=== PATIENT | female | born 1985 | race Caucasian/White ===

== ENCOUNTER 2017-02-10 23:10 | Emergency (ER) | payer BC, OTHER ==
[~2017-02-10] VITALS: Ht 165.1 cm; Wt 90.7 kg
[~2017-02-10 23:10] MED LIST: ALBIPROI INH; ALBU90I INH; ALBU90OI INH; AMOX500 PO; AZIT250 PO; Amoxicillin500 MG PO; BCP; BIRTH CONTROL; CEPH500 PO; CLIN300 PO; CLON.5 PO; CODGUAEL PO; DIPATR PO; DOXY100 PO; FAMO20 PO; FLUT.05NI; Flonase 0.05% N16 GM; GUAI600T33 PO; HYDACE5 PO; HYDGUAL120 PO; IBUP600 PO; IBUP800 PO; LORA10 PO; MECL25 PO; MEDR150I IM; NUVA RING; OTC COLD MEDS; PERM5TC TOP; PRED20 PO; PROCODE120 PO; PROM25 PO; RANI150 PO; RXCLIN PO; RXHYDACE PO; SERT50; SUDAFED 12-HOU120 MG PO; SULTRIDS PO; TRAM50 PO; TRIA80TC TOP; [UNRECOGNIZED DRUG - REMARK]
[2017-02-10] MEDS ORDERED: RANI150 PO (23:16)
[2017-02-11 00:27] LABS: BASOPHILS ABSOLUTE AUTO 0.02 K/mm3 (0.00-0.23); BASOPHILS PERCENT AUTO 0 % (0-2); EOSINOPHILS ABSOLUTE AUTO 0.27 K/mm3 (0.00-0.68); EOSINOPHILS PERCENT AUTO 4 % (0-6); Hemoglobin 14.9 g/dL (11.5-16.0); IMMATURE GRAN ABSOLUTE AUTO 0.03 K/mm3 (0.00-0.10); IMMATURE GRAN PERCENT AUTO 1 % (0-1); LYMPHOCYTES ABSOLUTE AUTO 2.03 K/mm3 (0.84-5.20); LYMPHOCYTES PERCENT AUTO 31 % (21-46); MONOCYTES ABSOLUTE AUTO 0.75 K/mm3 (0.16-1.47); MONOCYTES PERCENT AUTO 11 % (4-13); Mean Corpuscular HGB 33.2 pg (26.0-34.0); Mean Corpuscular HGB Conc 34.7 g/dL (31.5-36.5); Mean Corpuscular Volume 96 fL (80-100); Mean Platelet Volume 10.4 fL (9.1-12.4); NEUTROPHILS ABSOLUTE AUTO 3.49 K/mm3 (1.96-9.15); NEUTROPHILS PERCENT AUTO 53 % (41-73); Platelet Count 150 K/mm3 (150-400); RDW Coefficient Variation 12.8 % (11.7-14.2); RDW Standard Deviation 44.1 fL (35.1-46.3); Red Blood Cell Count 4.49 M/mm3 (3.80-5.20); White Blood Cell Count 6.59 K/mm3 (4.00-11.30)
[2017-02-11 00:42] LABS: Alanine Aminotransfer (ALT/SGP 37 U/L (12-78); Albumin, Blood 3.7 g/dL (3.4-5.0); Alk Phos 73 U/L (50-136); Anion Gap 7 mmol/L (6-16); Aspartate Aminotrans (AST/SGOT 21 U/L (12-37); Bilirubin, Total 0.4 mg/dL (0.1-1.0); Blood Urea Nitrogen 11 mg/dL (8-24); Bun/Creatinine Ratio 19.9 (12.0-20.0); CO2, Blood 22 mmol/L (21-32); Calcium, Blood 8.3 mg/dL (8.5-10.1); Chloride, Blood 109 mmol/L (98-108); Creatinine, Blood 0.55 mg/dL (0.40-1.00); Globulin, Blood 3.7 g/dL (2.2-4.0); Glomerular Filtration Rate >60 (60-); Glucose, Blood 100 mg/dL (70-99); Potassium, Blood 3.8 mmol/L (3.5-5.5); Sodium, Blood 138 mmol/L (136-145); Total Protein, Blood 7.4 g/dL (6.4-8.2)
[2017-02-11] MEDS ORDERED: Zofran Odt4 MG SL (01:34)
== END 2017-02-11 01:47 | disposition home or self-care (01) ==
LOC: ER 23:10
PROVIDERS: Emergency Medicine
DX: R11.2 Nausea with vomiting, unspecified (principal); Z88.2 Allergy status to sulfonamides; Z88.8 Allergy status to other drugs, medicaments and biological substances; Z79.899 Other long term (current) drug therapy; F32.9 Major depressive disorder, single episode, unspecified; F17.200 Nicotine dependence, unspecified, uncomplicated
CPT/HCPCS: 36415; 80053; 85025; 96374; 99283; J2405

== ENCOUNTER 2017-03-28 12:52 | Emergency (ER) | payer BC, OTHER ==
[~2017-03-28] VITALS: Ht 167.6 cm; Wt 90.7 kg
[~2017-03-28 12:52] MED LIST changes: +Zofran Odt4 MG SL
== END 2017-03-28 14:40 | disposition home or self-care (01) ==
LOC: ER 12:52
DX: S93.401A Sprain of unspecified ligament of right ankle, initial encounter (principal); F32.9 Major depressive disorder, single episode, unspecified; F17.200 Nicotine dependence, unspecified, uncomplicated; Z88.2 Allergy status to sulfonamides; Z88.1 Allergy status to other antibiotic agents; Z79.899 Other long term (current) drug therapy; X50.1XXA Overexertion from prolonged static or awkward postures, initial encounter
CPT/HCPCS: 29515; 73610; 73630; 99283

== ENCOUNTER 2017-06-01 19:34 | Emergency (ER) | payer BC, OTHER ==
[~2017-06-01] VITALS: Ht 165.1 cm; Wt 90.7 kg
[2017-06-01 20:49] LABS: Source, Urine Clean Catch
[2017-06-01 20:50] LABS: BASOPHILS ABSOLUTE AUTO 0.02 K/mm3 (0.00-0.23); BASOPHILS PERCENT AUTO 0 % (0-2); EOSINOPHILS ABSOLUTE AUTO 0.19 K/mm3 (0.00-0.68); EOSINOPHILS PERCENT AUTO 2 % (0-6); Hematocrit 40.3 % (33.0-51.0); Hemoglobin 14.4 g/dL (11.5-16.0); IMMATURE GRAN ABSOLUTE AUTO 0.02 K/mm3 (0.00-0.10); IMMATURE GRAN PERCENT AUTO 0 % (0-1); LYMPHOCYTES ABSOLUTE AUTO 1.56 K/mm3 (0.84-5.20); LYMPHOCYTES PERCENT AUTO 17 % (21-46); MONOCYTES PERCENT AUTO 6 % (4-13); Mean Corpuscular HGB 33.2 pg (26.0-34.0); Mean Corpuscular HGB Conc 35.7 g/dL (31.5-36.5); Mean Corpuscular Volume 93 fL (80-100); Mean Platelet Volume 9.7 fL (9.1-12.4); NEUTROPHILS ABSOLUTE AUTO 6.79 K/mm3 (1.96-9.15); NEUTROPHILS PERCENT AUTO 75 % (41-73); Platelet Count 236 K/mm3 (150-400); RDW Coefficient Variation 12.3 % (11.7-14.2); RDW Standard Deviation 42.5 fL (35.1-46.3); Red Blood Cell Count 4.34 M/mm3 (3.80-5.20); White Blood Cell Count 9.08 K/mm3 (4.00-11.30)
[2017-06-01 20:51] LABS: Bilirubin, Urine Neg (Neg); Blood, Urine Neg (Neg); Glucose Qualitative, Urine Neg (Neg); Ketones, Urine Neg (Neg); Leukocyte Esterase, Urine 1+ (Neg); Nitrite, Urine Neg (Neg); Protein, Urine Neg (Neg); Urobilinogen, Urine NORM (Normal)
[2017-06-01 20:57] LABS: Appearance, Urine Clear (Clear); Color, Urine Yellow (P-Yellow)
[2017-06-01 20:58] LABS: Squamous Epithelial Cells Mod /hpf (Few)
[2017-06-01 20:59] LABS: Bacteria Few /hpf; Red Blood Cells, Urine 0-2 /hpf (0-2)
[2017-06-01 21:08] LABS: Anion Gap 8 mmol/L (6-16); Blood Urea Nitrogen 10 mg/dL (8-24); Bun/Creatinine Ratio 20.2 (12.0-20.0); CO2, Blood 24 mmol/L (21-32); Calcium, Blood 8.7 mg/dL (8.5-10.1); Chloride, Blood 105 mmol/L (98-108); Glomerular Filtration Rate >60 (60-); Glucose, Blood 96 mg/dL (70-99); Potassium, Blood 3.5 mmol/L (3.5-5.5); Sodium, Blood 137 mmol/L (136-145)
== END 2017-06-01 21:49 | disposition home or self-care (01) ==
LOC: ER 19:34
PROVIDERS: Emergency Medicine
DX: O21.0 Mild hyperemesis gravidarum (principal); O99.331 Smoking (tobacco) complicating pregnancy, first trimester; F17.210 Nicotine dependence, cigarettes, uncomplicated; Z3A.01 Less than 8 weeks gestation of pregnancy; Z3A.08 8 weeks gestation of pregnancy
CPT/HCPCS: 36415; 80048; 81001; 85025; 87086; 96361; 96374; 99283; J2405; J7030

== ENCOUNTER 2017-06-22 09:03 | Inpatient (IN) | payer BC, OTHER ==
[~2017-06-22] VITALS: Ht 165.1 cm; Wt 90.7 kg
[2017-06-22] MEDS ORDERED: IBUP600 PO (09:25)
[2017-06-22 10:25] LABS: BASOPHILS ABSOLUTE AUTO 0.03 K/mm3 (0.00-0.23); BASOPHILS PERCENT AUTO 0 % (0-2); EOSINOPHILS ABSOLUTE AUTO 0.33 K/mm3 (0.00-0.68); EOSINOPHILS PERCENT AUTO 4 % (0-6); Hematocrit 38.9 % (33.0-51.0); Hemoglobin 13.6 g/dL (11.5-16.0); IMMATURE GRAN ABSOLUTE AUTO 0.02 K/mm3 (0.00-0.10); IMMATURE GRAN PERCENT AUTO 0 % (0-1); LYMPHOCYTES ABSOLUTE AUTO 1.99 K/mm3 (0.84-5.20); LYMPHOCYTES PERCENT AUTO 23 % (21-46); MONOCYTES ABSOLUTE AUTO 0.56 K/mm3 (0.16-1.47); MONOCYTES PERCENT AUTO 6 % (4-13); Mean Corpuscular HGB 32.6 pg (26.0-34.0); Mean Corpuscular Volume 93 fL (80-100); Mean Platelet Volume 10.2 fL (9.1-12.4); NEUTROPHILS ABSOLUTE AUTO 5.84 K/mm3 (1.96-9.15); NEUTROPHILS PERCENT AUTO 67 % (41-73); Platelet Count 200 K/mm3 (150-400); RDW Coefficient Variation 11.9 % (11.7-14.2); Red Blood Cell Count 4.17 M/mm3 (3.80-5.20); White Blood Cell Count 8.77 K/mm3 (4.00-11.30)
[2017-06-22 10:41] LABS: Alanine Aminotransfer (ALT/SGP 39 U/L (12-78); Albumin, Blood 3.9 g/dL (3.4-5.0); Albumin/Globulin Ratio 1.1 (0.8-1.8); Alk Phos 65 U/L (50-136); Anion Gap 8 mmol/L (6-16); Aspartate Aminotrans (AST/SGOT 15 U/L (12-37); Bilirubin, Total 0.4 mg/dL (0.1-1.0); Blood Urea Nitrogen 8 mg/dL (8-24); CO2, Blood 22 mmol/L (21-32); Calcium, Blood 8.8 mg/dL (8.5-10.1); Chloride, Blood 110 mmol/L (98-108); Creatinine, Blood 0.53 mg/dL (0.40-1.00); Globulin, Blood 3.7 g/dL (2.2-4.0); Glomerular Filtration Rate >60 (60-); Glucose, Blood 86 mg/dL (70-99); Potassium, Blood 4.1 mmol/L (3.5-5.5); Sodium, Blood 140 mmol/L (136-145); Total Protein, Blood 7.6 g/dL (6.4-8.2)
== END 2017-06-22 14:29 | disposition home or self-care (01) | DRG 770 ==
LOC: ER 09:03 → SURS 11:34 → ER 11:37 → SURS 14:29
PROVIDERS: Obstetrics & Gynecology; Physician Assistant
PROC: 10D17ZZ Extraction of Products of Conception, Retained, Via Natural or Artificial Opening (ICD-10-PCS; principal; 2017-06-22 12:00)
DX: O03.4 Incomplete spontaneous abortion without complication (principal); F17.210 Nicotine dependence, cigarettes, uncomplicated; Z3A.10 10 weeks gestation of pregnancy
CPT/HCPCS: 36415; 80053; 85025; 86850; 86900; 86901; 88305; 96361; 96374; 96375; 99285; J0690; J1100; J1885; J2210; J2250; J2405; J3010; J7030; J7120

== ENCOUNTER → 2018-06-13 | Outpatient (CLI) | payer SELFPAY ==
[2018-06-16 01:08] LABS: CHLAMYDIA TRACHOMATIS, NAA Equivocal (Negative); NEISSERIA GONORRHOEAE, NAA Negative (Negative)
== END ==
LOC: LAB SHORT 13:56 → LAB 13:56
PROVIDERS: Registered Nurse Community Health
DX: A54.9 Gonococcal infection, unspecified (principal)
CPT/HCPCS: 87491; 87591

== ENCOUNTER 2019-06-10 11:49 | Emergency (ER) | payer OTHER ==
[~2019-06-10] VITALS: Ht 165.1 cm; Wt 63.5 kg
[2019-06-10 12:54] LABS: BASOPHILS ABSOLUTE AUTO 0.03 K/mm3 (0.00-0.23); BASOPHILS PERCENT AUTO 0 % (0-2); EOSINOPHILS ABSOLUTE AUTO 0.36 K/mm3 (0.00-0.68); EOSINOPHILS PERCENT AUTO 4 % (0-6); Hematocrit 41.8 % (33.0-51.0); Hemoglobin 14.3 g/dL (11.5-16.0); IMMATURE GRAN ABSOLUTE AUTO 0.03 K/mm3 (0.00-0.10); IMMATURE GRAN PERCENT AUTO 0 % (0-1); LYMPHOCYTES ABSOLUTE AUTO 2.36 K/mm3 (0.84-5.20); LYMPHOCYTES PERCENT AUTO 27 % (21-46); MONOCYTES ABSOLUTE AUTO 0.59 K/mm3 (0.16-1.47); MONOCYTES PERCENT AUTO 7 % (4-13); Mean Corpuscular HGB Conc 34.2 g/dL (31.5-36.5); Mean Corpuscular Volume 94 fL (80-100); Mean Platelet Volume 9.3 fL (9.1-12.4); NEUTROPHILS ABSOLUTE AUTO 5.53 K/mm3 (1.96-9.15); NEUTROPHILS PERCENT AUTO 62 % (41-73); Platelet Count 240 K/mm3 (150-400); RDW Standard Deviation 41.5 fL (35.1-46.3); Red Blood Cell Count 4.47 M/mm3 (3.80-5.20)
[2019-06-10 13:18] LABS: Alanine Aminotransfer (ALT/SGP 34 U/L (12-78); Albumin, Blood 3.5 g/dL (3.4-5.0); Alk Phos 62 U/L (50-136); Anion Gap 4 mmol/L (6-16); Aspartate Aminotrans (AST/SGOT 17 U/L (12-37); Bilirubin, Total 0.2 mg/dL (0.1-1.0); Blood Urea Nitrogen 11 mg/dL (8-24); Bun/Creatinine Ratio 22.5 (12.0-20.0); CO2, Blood 27 mmol/L (21-32); Calcium, Blood 8.4 mg/dL (8.5-10.1); Chloride, Blood 107 mmol/L (98-108); Creatinine, Blood 0.49 mg/dL (0.40-1.00); Globulin, Blood 3.6 g/dL (2.2-4.0); Glomerular Filtration Rate >60 (60-); Glucose, Blood 91 mg/dL (70-99); Potassium, Blood 3.7 mmol/L (3.5-5.5); Sodium, Blood 138 mmol/L (136-145); Total Protein, Blood 7.1 g/dL (6.4-8.2)
[2019-06-10 13:33] LABS: Beta HCG, Quantitative, Serum 33307 mIU/mL (0-3)
[2019-06-10 14:11] LABS: Source, Urine Voided
[2019-06-10 14:24] LABS: Bilirubin, Urine Neg (Neg); Blood, Urine Neg (Neg); Glucose Qualitative, Urine Neg (Neg); Ketones, Urine Neg (Neg); Leukocyte Esterase, Urine Neg (Neg); Nitrite, Urine Neg (Neg); Protein, Urine Neg (Neg); Specific Gravity, Urine 1.015 (1.003-1.022); Urobilinogen, Urine NORM (Normal)
[2019-06-10 14:35] LABS: U Amphetamine Screen DETECTED; U Barbituate Screen Not Detected; U Benzodiazapine Screen Not Detected; U Cannabinoids Screen Not Detected; U Cocaine Screen Not Detected; U Methadone Screen Not Detected; U Methamphetamine Screen Not Detected; U Opiates Screen Not Detected; U Phencyclidine Screen Not Detected
[2019-06-10 14:36] LABS: U Buprenorphine Screen Not Detected; U Oxycodone Screen Not Detected; U Propoxyphene Screen Not Detected
[2019-06-10 14:45] LABS: Appearance, Urine Hazy (Clear); Color, Urine Yellow (P-Yellow)
[2019-06-10] MEDS ORDERED: DICLEGIS DR 101 EACH PO (14:45)
[2019-06-10] MEDS ORDERED: PRENATAL TABLE1 EAC2 PO (14:45)
[2019-06-10] MEDS ORDERED: PROM25 PO (14:45)
[2019-06-10 14:46] LABS: Amorphous Mod (0-Heavy); Bacteria Few /hpf; Red Blood Cells, Urine 0-2 /hpf (0-2); Squamous Epithelial Cells Few /hpf (Few); White Blood Cells, Urine 0-2 /hpf (0-5)
== END 2019-06-10 15:01 | disposition home or self-care (01) ==
LOC: ER 11:49
PROVIDERS: Emergency Medicine
DX: O34.81 Maternal care for other abnormalities of pelvic organs, first trimester (principal); N83.201 Unspecified ovarian cyst, right side; O99.321 Drug use complicating pregnancy, first trimester; F15.90 Other stimulant use, unspecified, uncomplicated; O99.331 Smoking (tobacco) complicating pregnancy, first trimester; F17.200 Nicotine dependence, unspecified, uncomplicated; Z88.2 Allergy status to sulfonamides; Z3A.01 Less than 8 weeks gestation of pregnancy; Z88.1 Allergy status to other antibiotic agents
CPT/HCPCS: 36415; 76801; 76817; 80053; 81001; 84702; 85025; 99284-25

== ENCOUNTER → 2019-08-02 | Outpatient (CLI) | payer OTHER ==
[~2019-08-02] MED LIST changes: +DICLEGIS DR 101 EACH PO; +PRENATAL TABLE1 EAC2 PO
[2019-08-03 09:41] LABS: Candida species (DNA Probe) Negative (NEGATIVE); G. vaginalis (DNA Probe) Positive (NEGATIVE); T. vaginalis (DNA Probe) Negative (NEGATIVE)
[2019-08-04 13:09] LABS: CHLAMYDIA TRACHOMATIS, NAA Positive (Negative); HPV 16 Negative (Negative); HPV 18 Negative (Negative); HPV OTHER HR TYPES Negative (Negative); NEISSERIA GONORRHOEAE, NAA Negative (Negative)
== END | disposition home or self-care (01) ==
LOC: LAB SHORT 16:30 → LAB 16:30
PROVIDERS: Obstetrics & Gynecology
DX: O99.89 Other specified diseases and conditions complicating pregnancy, childbirth and the puerperium (principal); N89.8 Other specified noninflammatory disorders of vagina
CPT/HCPCS: 87480; 87491; 87510; 87591; 87624; 87660; G0123

== ENCOUNTER 2020-12-22 10:26 | Emergency (ER) | payer OTHER ==
[~2020-12-22] VITALS: Ht 167.6 cm; Wt 81.7 kg
== END 2020-12-22 14:24 | disposition left against medical advice (07) ==
LOC: ER 10:26
DX: O99.891 Other specified diseases and conditions complicating pregnancy (principal); R42 Dizziness and giddiness; R51.9 Headache, unspecified; R06.02 Shortness of breath; Z3A.01 Less than 8 weeks gestation of pregnancy
CPT/HCPCS: 93005; 93010; 99284-25

== ENCOUNTER → 2021-01-10 | Outpatient (CLI) | payer OTHER ==
[2021-01-10 18:06] LABS: Source, Urine Voided
[2021-01-10 18:47] LABS: Appearance, Urine Hazy (Clear); Bilirubin, Urine Neg (Neg); Blood, Urine Neg (Neg); Color, Urine Yellow (P-Yellow); Glucose Qualitative, Urine Neg (Neg); Ketones, Urine Neg (Neg); Leukocyte Esterase, Urine Neg (Neg); Nitrite, Urine Neg (Neg); Protein, Urine Neg (Neg); Urobilinogen, Urine NORM (Normal); pH, Urine 6.5 (5.0-8.0)
[2021-01-10 18:59] LABS: Bacteria Rare /hpf; Red Blood Cells, Urine 0-2 /hpf (0-2); Squamous Epithelial Cells Rare /hpf (Few); White Blood Cells, Urine 0-2 /hpf (0-5)
[2021-01-12 07:07] LABS: CHLAMYDIA TRACHOMATIS, NAA Negative (Negative)
== END | disposition home or self-care (01) ==
LOC: LAB SHORT 18:03 → LAB 18:03
PROVIDERS: Family Medicine
DX: Z34.90 Encounter for supervision of normal pregnancy, unspecified, unspecified trimester (principal)
CPT/HCPCS: 81001; 87086; 87491; 87591

== ENCOUNTER 2021-01-23 19:04 | Emergency (ER) | payer OTHER ==
[~2021-01-23] VITALS: Ht 165.1 cm; Wt 81.7 kg
[2021-01-23 19:23] LABS: Source, Urine Clean Catch
[2021-01-23 19:26] LABS: Appearance, Urine Clear (Clear); Blood, Urine Neg (Neg); Color, Urine Yellow (P-Yellow); Glucose Qualitative, Urine Neg (Neg); Ketones, Urine Neg (Neg); Leukocyte Esterase, Urine 1+ (Neg); Nitrite, Urine Neg (Neg); Protein, Urine 1+ (Neg); Urobilinogen, Urine NORM (Normal)
[2021-01-23 19:44] LABS: Bilirubin, Urine 1+ (Neg)
[2021-01-23 19:45] LABS: Bacteria Mod /hpf; Red Blood Cells, Urine 0-2 /hpf (0-2); Squamous Epithelial Cells Few /hpf (Few)
[2021-01-23 20:12] LABS: U Amphetamine Screen DETECTED; U Barbituate Screen Not Detected; U Benzodiazapine Screen Not Detected; U Buprenorphine Screen Not Detected; U Cannabinoids Screen Not Detected; U Cocaine Screen Not Detected; U Methadone Screen Not Detected; U Methamphetamine Screen DETECTED; U Opiates Screen Not Detected; U Oxycodone Screen Not Detected; U Phencyclidine Screen Not Detected; U Propoxyphene Screen Not Detected
[2021-01-23 20:20] LABS: BASOPHILS ABSOLUTE AUTO 0.02 K/mm3 (0.00-0.23); BASOPHILS PERCENT AUTO 0 % (0-2); EOSINOPHILS ABSOLUTE AUTO 0.11 K/mm3 (0.00-0.68); EOSINOPHILS PERCENT AUTO 1 % (0-6); Hematocrit 40.8 % (33.0-51.0); Hemoglobin 14.4 g/dL (11.5-16.0); IMMATURE GRAN ABSOLUTE AUTO 0.02 K/mm3 (0.00-0.10); IMMATURE GRAN PERCENT AUTO 0 % (0-1); LYMPHOCYTES ABSOLUTE AUTO 0.74 K/mm3 (0.84-5.20); LYMPHOCYTES PERCENT AUTO 9 % (21-46); MONOCYTES ABSOLUTE AUTO 0.38 K/mm3 (0.16-1.47); MONOCYTES PERCENT AUTO 5 % (4-13); Mean Corpuscular HGB 30.2 pg (26.0-34.0); Mean Corpuscular HGB Conc 35.3 g/dL (31.5-36.5); Mean Corpuscular Volume 86 fL (80-100); Mean Platelet Volume 9.8 fL (9.1-12.4); NEUTROPHILS ABSOLUTE AUTO 6.95 K/mm3 (1.96-9.15); NEUTROPHILS PERCENT AUTO 85 % (41-73); Platelet Count 224 K/mm3 (150-400); RDW Coefficient Variation 13.2 % (11.7-14.2); RDW Standard Deviation 40.5 fL (35.1-46.3); Red Blood Cell Count 4.77 M/mm3 (3.80-5.20); White Blood Cell Count 8.22 K/mm3 (4.00-11.30)
[2021-01-23 20:47] LABS: Alanine Aminotransfer (ALT/SGP 20 U/L (12-78); Albumin, Blood 3.1 g/dL (3.4-5.0); Albumin/Globulin Ratio 0.8 (0.8-1.8); Alk Phos 73 U/L (50-136); Anion Gap 9 mmol/L (6-16); Aspartate Aminotrans (AST/SGOT 9 U/L (12-37); Bilirubin, Total 0.4 mg/dL (0.1-1.0); Blood Urea Nitrogen 12 mg/dL (8-24); Bun/Creatinine Ratio 32.3 (12.0-20.0); CO2, Blood 20 mmol/L (21-32); Calcium, Blood 8.4 mg/dL (8.5-10.1); Chloride, Blood 104 mmol/L (98-108); Creatinine, Blood 0.37 mg/dL (0.40-1.00); Globulin, Blood 3.7 g/dL (2.2-4.0); Glomerular Filtration Rate >60 (60-); Glucose, Blood 123 mg/dL (70-99); Potassium, Blood 3.5 mmol/L (3.5-5.5); Sodium, Blood 133 mmol/L (136-145); Total Protein, Blood 6.8 g/dL (6.4-8.2)
[2021-01-23 20:59] LABS: Beta HCG, Quantitative, Serum 47885 mIU/mL (0-3)
== END 2021-01-23 21:00 | disposition left against medical advice (07) ==
LOC: ER 19:04
PROVIDERS: Emergency Medicine
DX: O21.9 Vomiting of pregnancy, unspecified (principal); O99.891 Other specified diseases and conditions complicating pregnancy; R10.9 Unspecified abdominal pain; Z88.2 Allergy status to sulfonamides; Z88.1 Allergy status to other antibiotic agents; O99.331 Smoking (tobacco) complicating pregnancy, first trimester; F17.210 Nicotine dependence, cigarettes, uncomplicated; Z3A.10 10 weeks gestation of pregnancy
CPT/HCPCS: 36415; 76801; 80053; 81001; 81025; 83605; 83690; 84145; 84702; 85025; 87086; 99284-25

== ENCOUNTER → 2021-01-27 | Outpatient (CLI) | payer OTHER ==
[2021-01-27 19:56] LABS: BASOPHILS ABSOLUTE AUTO 0.02 K/mm3 (0.00-0.23); BASOPHILS PERCENT AUTO 0 % (0-2); EOSINOPHILS ABSOLUTE AUTO 0.21 K/mm3 (0.00-0.68); EOSINOPHILS PERCENT AUTO 3 % (0-6); Hematocrit 38.5 % (33.0-51.0); Hemoglobin 13.1 g/dL (11.5-16.0); IMMATURE GRAN ABSOLUTE AUTO 0.01 K/mm3 (0.00-0.10); IMMATURE GRAN PERCENT AUTO 0 % (0-1); LYMPHOCYTES ABSOLUTE AUTO 2.54 K/mm3 (0.84-5.20); LYMPHOCYTES PERCENT AUTO 35 % (21-46); MONOCYTES ABSOLUTE AUTO 0.52 K/mm3 (0.16-1.47); MONOCYTES PERCENT AUTO 7 % (4-13); Mean Corpuscular HGB 29.6 pg (26.0-34.0); Mean Corpuscular Volume 87 fL (80-100); Mean Platelet Volume 10.1 fL (9.1-12.4); NEUTROPHILS ABSOLUTE AUTO 3.87 K/mm3 (1.96-9.15); NEUTROPHILS PERCENT AUTO 54 % (41-73); Platelet Count 283 K/mm3 (150-400); RDW Coefficient Variation 13.2 % (11.7-14.2); RDW Standard Deviation 41.9 fL (35.1-46.3); Red Blood Cell Count 4.42 M/mm3 (3.80-5.20); White Blood Cell Count 7.17 K/mm3 (4.00-11.30)
== END | disposition home or self-care (01) ==
LOC: LAB SHORT 18:03
PROVIDERS: Family Medicine
DX: Z33.1 Pregnant state, incidental (principal)
CPT/HCPCS: 84443; 86870

== ENCOUNTER → 2021-03-03 | Outpatient (CLI) | payer OTHER ==
[2021-03-04 09:30] LABS: Performing Lab BLOODWORKS; Test Name TITER
== END | disposition home or self-care (01) ==
LOC: LAB SHORT 15:45
PROVIDERS: Family Medicine
DX: R89.4 Abnormal immunological findings in specimens from other organs, systems and tissues (principal)
CPT/HCPCS: 86870; 86906

== ENCOUNTER → 2021-03-13 | Outpatient (CLI) | payer OTHER ==
[2021-03-13 20:48] LABS: Performing Lab BLOODWORKS; Test Name ABID
[2021-03-18 10:52] LABS: Result SEE REPORT
== END | disposition home or self-care (01) ==
LOC: LAB SHORT 20:07 → LAB 20:07
PROVIDERS: Family Medicine
DX: R89.4 Abnormal immunological findings in specimens from other organs, systems and tissues (principal); Z33.1 Pregnant state, incidental
CPT/HCPCS: 86870

== ENCOUNTER 2021-07-09 17:00 | Inpatient (IN) | payer OTHER ==
[~2021-07-09] VITALS: Ht 167.6 cm; Wt 104.5 kg
[~2021-07-09 17:00] MED LIST changes: +OMEP20ER PO
[2021-07-09 18:20] LABS: BASOPHILS ABSOLUTE AUTO 0.03 K/mm3 (0.00-0.23); BASOPHILS PERCENT AUTO 0 % (0-2); EOSINOPHILS ABSOLUTE AUTO 0.25 K/mm3 (0.00-0.68); EOSINOPHILS PERCENT AUTO 2 % (0-6); Hematocrit 37.4 % (33.0-51.0); Hemoglobin 12.1 g/dL (11.5-16.0); IMMATURE GRAN ABSOLUTE AUTO 0.04 K/mm3 (0.00-0.10); IMMATURE GRAN PERCENT AUTO 0 % (0-1); LYMPHOCYTES ABSOLUTE AUTO 2.47 K/mm3 (0.84-5.20); LYMPHOCYTES PERCENT AUTO 23 % (21-46); MONOCYTES ABSOLUTE AUTO 0.69 K/mm3 (0.16-1.47); MONOCYTES PERCENT AUTO 7 % (4-13); Mean Corpuscular HGB 26.7 pg (26.0-34.0); Mean Corpuscular HGB Conc 32.4 g/dL (31.5-36.5); Mean Corpuscular Volume 83 fL (80-100); Mean Platelet Volume 10.7 fL (9.1-12.4); NEUTROPHILS ABSOLUTE AUTO 7.21 K/mm3 (1.96-9.15); NEUTROPHILS PERCENT AUTO 67 % (41-73); Platelet Count 154 K/mm3 (150-400); RDW Coefficient Variation 14.3 % (11.7-14.2); RDW Standard Deviation 42.5 fL (35.1-46.3); Red Blood Cell Count 4.53 M/mm3 (3.80-5.20); White Blood Cell Count 10.69 K/mm3 (4.00-11.30)
[2021-07-09 18:42] LABS: Albumin, Blood 2.2 g/dL (3.4-5.0); Albumin/Globulin Ratio 0.6 (0.8-1.8); Bilirubin, Total 0.1 mg/dL (0.1-1.0); Bun/Creatinine Ratio 24.6 (12.0-20.0); Calcium, Blood 8.7 mg/dL (8.5-10.1); Creatinine, Blood 0.57 mg/dL (0.40-1.00); Globulin, Blood 3.6 g/dL (2.2-4.0); Potassium, Blood 4.1 mmol/L (3.5-5.5); Total Protein, Blood 5.8 g/dL (6.4-8.2)
[2021-07-09 22:33] LABS: U Amphetamine Screen DETECTED; U Barbituate Screen Not Detected; U Benzodiazapine Screen Not Detected; U Buprenorphine Screen Not Detected; U Cannabinoids Screen Not Detected; U Cocaine Screen Not Detected; U Methadone Screen Not Detected; U Methamphetamine Screen DETECTED; U Opiates Screen Not Detected; U Oxycodone Screen Not Detected; U Phencyclidine Screen Not Detected; U Propoxyphene Screen Not Detected
[2021-07-10 07:56] LABS: PCO2 Cord - Arterial 60.4 mmHg (40-50); pH Cord - Arterial 7.21 (7.28-7.35)
[2021-07-10 07:58] LABS: PCO2 Cord - Venous 57.2 mmHg (40-50); pH Umbilical Cord - Venous 7.24 (7.26-7.35)
[2021-07-10 07:59] LABS: PO2 Cord - Arterial < 14 mmHg (16-20)
--- NOTE | 2021-07-10 07:59 | NUR ---
07/10/21 0759 Sharlene Rubin VIABLE MALE BORN BREECH AT 0740. [facility]. CORD GASES ON ICE GIVEN TO JULIET ONEILL, CORD BLOOD AND CORD SEGEMENT FOR A CORD STAT GIVEN TO MACARIO MENDIETA. PLACENTA SENT TO PATHOLOGY.
[2021-07-10 08:00] LABS: PO2 Cord - Venous < 14 mmHg (28-32)
--- NOTE | 2021-07-10 09:23 | NUR ---
BP DR STANFORD CALLED AND UPDATED ON PATIENTS VITALS. PLAN TO RESTART MAGNESIUM AT 1 GRAM ONCE BP INCREASES A LITTLE AND MAP IS ATLEAST 90. REPORT TO J LUIS MENDIETA. PT SLEEPING AND DENIES PAIN AT THIS TIME.
--- NOTE | 2021-07-10 16:08 | NUR ---
BP AT 1605 TAKEN WHILE PT BENDING ARM, EATING FOOD. RETAKEN WITH STRAITH ARM AND NO MOVEMENT.
--- NOTE | 2021-07-10 19:42 | NUR ---
1904-BP NOTED TO BE 169/101 1919-BP RECHECK 152/87 1934-ONCALL PROVIDER DR. GAYLE NOTIFIED OF ELEVATED BP VIA PHONE CALL. NO NEW ORDERS RECEIVED AT THIS TIME. WILL CONTINUE TO MONITOR.
[2021-07-11 05:52] LABS: BASOPHILS ABSOLUTE AUTO 0.03 K/mm3 (0.00-0.23); BASOPHILS PERCENT AUTO 0 % (0-2); EOSINOPHILS ABSOLUTE AUTO 0.23 K/mm3 (0.00-0.68); EOSINOPHILS PERCENT AUTO 2 % (0-6); Hematocrit 35.2 % (33.0-51.0); Hemoglobin 11.6 g/dL (11.5-16.0); IMMATURE GRAN PERCENT AUTO 1 % (0-1); LYMPHOCYTES ABSOLUTE AUTO 2.07 K/mm3 (0.84-5.20); LYMPHOCYTES PERCENT AUTO 19 % (21-46); MONOCYTES ABSOLUTE AUTO 0.66 K/mm3 (0.16-1.47); MONOCYTES PERCENT AUTO 6 % (4-13); Mean Corpuscular Volume 82 fL (80-100); Mean Platelet Volume 11.3 fL (9.1-12.4); NEUTROPHILS ABSOLUTE AUTO 7.79 K/mm3 (1.96-9.15); NEUTROPHILS PERCENT AUTO 72 % (41-73); Platelet Count 163 K/mm3 (150-400); RDW Coefficient Variation 14.6 % (11.7-14.2); RDW Standard Deviation 42.3 fL (35.1-46.3); Red Blood Cell Count 4.29 M/mm3 (3.80-5.20); White Blood Cell Count 10.88 K/mm3 (4.00-11.30)
--- NOTE | 2021-07-11 11:10 | NUR ---
mag sulfate drip dc/d per dr ray orders at 1030 on 07/11/21. labetalol po [address] bucio orders.
--- NOTE | 2021-07-11 11:33 | NUR ---
pt down in nursery visiting
--- NOTE | 2021-07-11 13:13 | NUR ---
ASSUMED CARE FOR LUNCH COVERAGE, PT REFUSED NICOTINE PATCH, PATIENT SIGNED RELEASE FROM RESPONSIBLITY FORM SIGNED RISKS : NAUSEA/VOMITING, STROKE. BLEEDING, . PT VERBALIZED UNDERSTANDING RISKS, TAMPER TAPE APPLIED TO 2 IV PORTS, PT AMBULATED OUTSIDE
--- NOTE | 2021-07-11 16:09 | NUR ---
pt on phone with boyfriend jose d and yelling at him that she wishes he would "just and to shut the fuck up. Shes yelling on the phone telling him not to come to the hospital because he just creates problems."
--- NOTE | 2021-07-11 19:09 | NUR ---
jose d father of baby present and at bedside slurring words and twitching. cannot sit still
--- NOTE | 2021-07-11 20:00 | NUR ---
PT REQUEST FOR A WHEELCHAIR TO GO OUTSIDE TO SMOKE WITH SO.
--- NOTE | 2021-07-12 16:00 | NUR ---
Assumed care from Judy Razo RN.
--- NOTE | 2021-07-12 17:15 | NUR ---
Pt resting in bed, reports very tired. Dinner tray left at bedside, denies other needs.
--- NOTE | 2021-07-12 18:15 | NUR ---
Went to order picker pt dinner tray, pt had brought to cart and was not in room.
--- NOTE | 2021-07-12 19:05 | NUR ---
Report to Chey Rodriguez RN. To pt room to give report and introduction, pt not in room or in nursery w/nb.
--- NOTE | 2021-07-12 21:15 | NUR ---
PT WAS OFF UNIT WHEN THIS RN ARRIVED ON SHIFT. AT ABOUT 1930 PT ARRIVED BACK ON UNIT. PT STATED THAT HER BP WOULD BE HIGH BECAUSE SHE WAS OUT RUNNING AROUND. PT STATES THAT HER SHOES HAD BROKE AND SHE NEED SOME THINGS SO SHE WALKED OVER TO [facility]. RN REINFORCED THAT WHILE SHE IS A PT ADMITTED TO THE HOSPITAL SHE IS NOT TO LEAVE THE HOSPITAL GROUNDS. PT VERBILIZED UNDERSTANDING
[2021-07-13] MEDS ORDERED: LABE200 PO (12:21)
[2021-07-13] MEDS ORDERED: Percocet 5-3251 EACH PO (12:22)
[2021-07-13] MEDS ORDERED: IBUP800 PO (12:22)
[2021-07-13] MEDS ORDERED: DOCU100 PO (12:23)
== END 2021-07-13 13:03 | disposition home or self-care (01) | DRG 788 ==
LOC: BC 17:00 → OBS 17:00 → BC 17:28
PROVIDERS: Family Medicine; ADMIT Obstetrics & Gynecology
PROC: 10D00Z1 Extraction of Products of Conception, Low, Open Approach (ICD-10-PCS; principal; 2021-07-10 06:45)
DX: O11.4 Pre-existing hypertension with pre-eclampsia, complicating childbirth (principal); Z3A.36 36 weeks gestation of pregnancy; Z37.0 Single live birth; O99.324 Drug use complicating childbirth; O99.334 Smoking (tobacco) complicating childbirth; F15.10 Other stimulant abuse, uncomplicated; O34.211 Maternal care for low transverse scar from previous cesarean delivery; Z71.51 Drug abuse counseling and surveillance of drug abuser; Z88.2 Allergy status to sulfonamides; Z91.011 Allergy to milk products; Z79.899 Other long term (current) drug therapy; Z98.890 Other specified postprocedural states; Z88.8 Allergy status to other drugs, medicaments and biological substances
CPT/HCPCS: 36415; 59025; 76819; 80053; 82570; 82803; 83615; 84156; 85025; 85384; 86850; 86870; 86900; 86901; 86902; 86922; 88307; 99213; A9270; C1765; J0690; J1885; J2370; J2405; J2590; J2765; J3475; J7120; U0004

== ENCOUNTER → 2023-01-07 | Outpatient (CLI) | payer OTHER ==
[~2023-01-07] MED LIST changes: +DOCU100 PO; +LABE200 PO; +Percocet 5-3251 EACH PO
[2023-01-08 12:32] LABS: Candida species (DNA Probe) Negative (NEGATIVE); G. vaginalis (DNA Probe) Positive (NEGATIVE); T. vaginalis (DNA Probe) Negative (NEGATIVE)
[2023-01-10 18:35] LABS: HIV 1,2 COMBO ANTIGEN/ANTIBODY Negative (Negative)
[2023-01-11 11:03] LABS: HEPATITIS A ANTIBODY, IGM Negative (Negative); HEPATITIS B CORE ANTIBODY, IGM Negative (Negative); HEPATITIS B SURFACE ANTIGEN Negative (Negative); HEPATITIS C AB CIA INTERP Negative (Negative); HEPATITIS C ANTIBODY CIA INDEX 0.04 IV
[2023-01-11 17:30] LABS: APTIMA MEDIA TYPE Unisex Swab; C. TRACHOMATIS BY TMA Negative (Negative); N. GONORRHOEAE BY TMA Negative (Negative); SPECIMEN SOURCE Vaginal
== END | disposition home or self-care (01) ==
LOC: LAB SHORT 14:24 → LAB 14:24
PROVIDERS: Physician Assistant Surgical
DX: N89.8 Other specified noninflammatory disorders of vagina (principal); Z20.9 Contact with and (suspected) exposure to unspecified communicable disease
CPT/HCPCS: 80074; 86592; 87389; 87480; 87491; 87510; 87591; 87660

== ENCOUNTER → 2023-12-14 | Outpatient (CLI) | payer OTHER | LOC: LAB SHORT 19:33 → LAB 19:33 | DX: N39.0 Urinary tract infection, site not specified (principal) | CPT/HCPCS: 87077; 87086; 87186 ==